=== PATIENT | female | born 1985 | race Caucasian/White ===

== ENCOUNTER 2017-02-11 13:16 | Emergency (ER) | payer OTHER ==
[~2017-02-11] VITALS: Ht 162.6 cm; Wt 68.0 kg
[~2017-02-11 13:16] MED LIST: HYDR-3533 PO; ONDA4 PO; TAMS0.4C67 PO
[2017-02-11 13:17] VITALS: BP 110/67; PULSE 108; RESP 16; TEMP 98.4; O2SAT 98
[2017-02-11] MEDS ORDERED: CITA10TA4 PO (13:32)
--- NOTE | 2017-02-11 14:17 | PD ---
HPI Chief Complaint: Injury Time Seen by Provider: 14:00 Travel History International Travel<30 days: No Contact w/Intl Traveler<30days: No Traveled to known affect area: No History of Present Illness HPI 31-year-old female presents to the emergency room for evaluation of right knee pain after slip and fall last night. Patient slipped on her sandals and fell with all of her weight on her right knee. She had immediate pain. Patient has not been able to bear weight since. States pain is excruciating when she moves it. Localized to the patella with radiation into the calf and thigh. She denies paresthesias. No chronic medical conditions. Take citalopram daily. She has not eaten anything today. Last drink tea at noon. Denies any other injuries. She does not have an orthopedic surgeon. FORMERLY [facility], [facility]–1983 Past Medical History Medical History: Denies Significant Hx Hx Anticoagulant Therapy: No Diabetes: No Diminished Hearing: No Influenza Vaccination: Yes ?: Not LMP: "NOW" Past Surgical History Section: Yes Social History Alcohol Use: Yes (3-4 BEER/WINE, 3/4 DAYS/WEEK) Tobacco Use: No (QUIT 09/2016) Substance Use: No (DENIES) Allergies-Medications (Allergen,Severity, Reaction): Coded Allergies: No Known Allergies (Verified , 02/11/17) Reported Meds & Prescriptions Reported Meds & Active Scripts Active Reported Citalopram (Citalopram Hydrobromide) 10 Mg Tab 10 Mg PO DAILY Review of Systems Except as stated in HPI: all other systems reviewed are Neg Physical Exam Narrative GENERAL: Well-nourished, well-developed female in no acute distress. Afebrile. SKIN: Focused skin assessment warm/dry. Extreme ecchymosis of the right anterior knee. HEAD: Normocephalic. EYES: No scleral icterus. No injection or drainage. NECK: Supple, trachea midline. No JVD or lymphadenopathy. CARDIOVASCULAR: Regular rate and rhythm without murmurs, gallops, or rubs. RESPIRATORY: Breath sounds equal bilaterally. No accessory muscle use. EXTREMITY: Right knee is extremity tenderness to palpation over the patella. Limited range of motion of the knee secondary to pain. Full range of motion of the ankle and foot. Extreme edema of the right knee. One plus dorsalis pedis pulse, confirmed with Doppler. Less than 2 second capillary refill distally. Data Data Last Documented VS Vital Signs Date Time Temp Pulse Resp B/P Pulse Ox O2 Delivery O2 Flow Rate FiO2 02/11/17 13:17 98.4 108 16 110/67 98 Orders Knee, Complete (4vws) (02/11/17 13:27) Splint Or Brace Apply/Monitor (02/11/17 14:57) Crutches (02/11/17 14:57) Oxycodone-Acetamin 5-325 Mg (Percocet (02/11/17 15:00) MDM Medical Decision Making Medical Screen Exam Complete: Yes Emergency Medical Condition: Yes Medical Record Reviewed: Yes Differential Diagnosis Fracture, sprain, strain, effusion Narrative Course 31-year-old female presents to the emergency room for evaluation of a knee pain after trip and fall last night. Patient fell directly on her right knee. Denies any other injuries. Physical exam reveals extreme edema and ecchymosis of the right anterior knee. Limited range of motion secondary to pain. One plus dorsalis pedis pulse in the right lower extremity, confirmed with Doppler. Less than second capillary refill distally. X-ray shows 2.4 center separation of the main superior-inferior fracture fragments of the patella. I spoke to Dr. Haines who recommends placing patient in knee immobilizer with crutches and having her follow-up in his office tomorrow morning. Patient was given Percocet in the emergency room. She'll be discharged with prescription for Lortab. Told to return for worsening symptoms. She understands and agrees to plan. Diagnosis Primary Impression: Closed fracture of right patella Qualified Code: S82.041A - Closed displaced comminuted fracture of right patella, initial encounter Referrals: Yoseph Haines MD Patient Instructions: General Instructions, Patellar Fracture (ED) Additional Instructions: Rest and drink plenty of fluids. Use crutches and splint until follow-up. Take Lortab with food as directed, as needed for pain. Do not drink alcohol or drive while taking this medication. Elevate and apply ice to the affected area for 20 minutes at a time, as needed for pain and swelling. Follow-up with Dr. Haines tomorrow morning at 7:30 at his [address] office. Return to the emergency room for worsening symptoms. Med/Other Pt SpecificInfo: Prescription(s) given Scripts Hydrocodone-Acetaminophen (Lortab)5-325 Mg Tab1 Tab PO Q6H PRN (PAIN) #15 TAB Ref 0 Prov:Sarah Culver MD 02/11/17 Disposition: 01 DISCHARGE HOME Condition: Stable Bettye Harrison Feb 11, 2017 14:17
--- NOTE | 2017-02-11 14:38 | RADRPT ---
EXAM DATE/TIME: 02/11/2017 13:43 [facility] COMPARISON: No previous studies available for comparison. INDICATIONS : Fell on right knee MEDICAL HISTORY : None. SURGICAL HISTORY : None. ENCOUNTER: Initial ACUITY: 1 day PAIN SCORE: 10/10 LOCATION: Right Knee TECH NOTE: denies , LIZBETH Robledo MR#[id number] :85 Exam date/desc:February 11, 2017 KNEE RIGHT COMPLETE (4VWS) FINDINGS: There is a acute fracture at the midportion of the patella with at least 2.4 cm of separation of the main superior and inferior fracture fragments. There is a small fracture fragment seen at the inferio r tip of the patella. There is a linear defect at the superior lateral aspect of patella which could relate to further fracturing or a pre-existing bipartite patella. There is soft tissue swelling anter iorly and laterally. The femur, tibia and proximal fibula appear intact. There is a joint effusion. CONCLUSION: Mid patellar fracture with distraction. Nic Crespo MD on February 11, 2017 at 14:33 Board Certified Radiologist. This report was verified electronically.
[2017-02-11] MEDS ORDERED: HYDR-3533 PO ×2 (14:58→14:59)
[2017-02-11] MEDS ORDERED: oxyCODONE/ACETAMINOPHEN 5 MG/325 MG TAB PO ONE (15:00)
[2017-02-14] MEDS ORDERED: HYDR-3366 PO (13:28)
== END 2017-02-11 15:39 | disposition home or self-care (01) ==
LOC: PHEFT 13:16
DX: S82.041A Displaced comminuted fracture of right patella, initial encounter for closed fracture (principal); W01.0XXA Fall on same level from slipping, tripping and stumbling without subsequent striking against object, initial encounter
CPT/HCPCS: 73564; 99283; E0113; L1830

== ENCOUNTER → 2017-02-14 | Day surgery (SDC) | payer OTHER ==
[~2017-02-14] VITALS: Ht 167.6 cm; Wt 68.0 kg
[~2017-02-14] MED LIST changes: +*morphine SULFATE 8 MG/ML PERIprocedure ONLY ONE; +ACETAMINOPHEN 1000 MG/100 ML VIAL IV ONE; +ACETAMINOPHEN/HYDROcodone 325 MG/7.5 MG TAB PO PRN; +BUPIVACAINE/EPINEPHRINE 0.25% 50 ML VIAL INFIL ONE; +CHLORHEXIDINE GLUCONATE 2 % 1 PACK (2 CLOTHS) TOPICAL PRN; +CHLORHEXIDINE GLUCONATE 4% SOLN 120 ML BTL TOPICAL SCH; +CITA10TA4 PO; +DIMETHICONE/OXYBENZONE/PADMIATE LIP BALM 4.25 GM TOPICAL ONE; +DIMETHICONE/OXYBENZONE/PADMIATE LIP BALM 4.25 GM TOPICAL PRN; +DO NOT ADM ANY ANTICOAGULANT DRUGS PRN; +GENTAMICIN SULFATE 80 MG/2 ML VIAL ONE; +HYDR-3366 PO; +INSULIN HUMAN REGULAR 1,000 UNITS/10 ML VIAL SQ PRN; +LACTATED RINGER'S 1000 ML INJ 1,000 ML IV ONE; +LACTATED RINGER'S 1000 ML IV PRN; +METOPROLOL TARTRATE 25 MG TAB PO PRN; +MIDAZOLAM HCL 2 MG/2 ML VIAL ONE; +MORPHINE SULFATE 4 MG/ML INJ IV PUSH PRN; +MORPHINE SULFATE 8 MG/ML INJ IV PUSH PRN; -ONDA4 PO; +ONDANSETRON HCL 4 MG/2 ML VIAL IV PRN; +ONDANSETRON HCL 4 MG/2 ML VIAL IV PUSH ONE; +POVIDONE IODINE 5% (ANTISEPSIS KIT) 4 APPLICATIONS EACH NARE PRN; +POVIDONE IODINE 7.5% SCRUB 118 ML BOTTLE TOPICAL SCH; +PROPOFOL 200 MG/20 ML AMP IV ONE; +SODIUM CHLORID 0.9% 500 ML IV PRN; +SODIUM CHLORIDE 0.9% FLUSH 10 ML FLUSH IV FLUSH PRN; +SODIUM CHLORIDE 0.9% FLUSH 10 ML FLUSH IV FLUSH SCH; -TAMS0.4C67 PO; +ceFAZolin 2 GM PREMIX 50 ML IV SCH; +ceFAZolin 2 GM PREMIX 50 ML ONE; +fentaNYL CITRATE 250 MCG/5 ML AMP ONE
[2017-02-14 09:20] VITALS: BP 112/79; PULSE 76; RESP 18; TEMP 98.6; O2SAT 100
--- NOTE | 2017-02-14 13:27 | PD.OP ---
cc: Yoseph Haines MD Operative Report Date of Surgery: Feb 14, 2017 Preoperative Diagnosis: Right knee patella fracture, comminuted. Postoperative Diagnosis: Same Procedure: Right knee patellar fracture open reduction and internal fixation. Anesthesia: Gen. Surgeon: Yoseph Haines Train Brakeman(s): LOR Antonio The surgical procedure was assisted by my Advanced Registered Nurse Practitioner. My TRIM OPERATOR presence was necessary throughout this case for the manipulation and positioning of the surgical extremity. My TRIM OPERATOR was assisting me throughout the duration of this procedure. The skill set of an Advance Registered Nurse Practitioner was medically necessary to complete this procedure. During the surgical case, the instructor adjunct surgical technician was working at the back table and the Advance Registered Nurse Practitioner was directly assisting me. Operation and Findings: Tourniquet time: 35 minutes at 250 mmHg of pressure Estimated blood loss: 75 cc The patient received intravenous Ancef. After the appropriate anesthesia was administered, the patient's leg was prepped and draped in the usual sterile fashion. We exsanguinated the leg and raised the tourniquet. We made a standard incision on the anterior aspect of the knee. We identified a displaced transverse patella fracture. Additionally there were 2 segments of comminution one medial and one lateral. We evacuated the hematoma. We curetted the edges to identify both the proximal and distal fragments. The visualized portion of the trochlea was unremarkable. We anatomically reduced the fracture fragments and provisionally held the fracture with reduction clamps. We verified anatomic alignment both on palpation of the articular surface and also on fluoroscopy. We then placed 2 wires from distal to proximal. We used these wires to place 2 individual 4.0 Synthes cannulated stainless steel partially-threaded screws. Both screws had very good purchase. We then placed 18-gauge wire through the base of the first screw which was then crossed and brought down to the bottom of the second screw. We threaded the wire through the second screw brining the wire to the proximal aspect of the knee. We then create a crisscross pattern. We twisted and tightened both the medial and lateral sides of the wire in usual fashion with excellent compression. The knee had full range of motion with no displacement of the fracture noted. We then suture repaired the areas of comminution both medially and laterally with 0 Vicryl. We closed the medial and lateral retinacular tears with 0 Vicryl as well. We took final fluoroscopic images. The tourniquet was released. Hemostasis was achieved and the knee was thoroughly irrigated. Skin was closed with 2-0 Vicryl followed by praveen. The postoperative plan is for delayed range of motion and nonweightbearing to the extremity with a canvas knee splint. Yoseph Haines MD Feb 14, 2017 13:27
[2017-02-14] MEDS: ACETAMINOPHEN/HYDROcodone 325 MG/7.5 MG TAB PO PRN ×2 (15:32→16:00)
[2017-02-14 16:00] VITALS: BP 112/68; PULSE 78; RESP 16; TEMP 98.4; O2SAT 100
--- NOTE | 2017-02-14 16:43 | RADRPT ---
EXAM DATE/TIME: 02/14/2017 13:12 [facility] COMPARISON: No previous studies available for comparison. INDICATIONS : RIGHT PATELLAR FIXATION MEDICAL HISTORY : None. SURGICAL HISTORY : None. ENCOUNTER: Initial ACUITY: 1 day PAIN SCORE: Non-responsive. LOCATION: Right KNEE FINDINGS: 4 digital films are submitted. These revealed patellar fixation with partially threaded cortical scre ws and cerclage wires. There appears to be satisfactory reduction fragments. The remainder the visual ized knee is grossly unremarkable. CONCLUSION: Satisfactory operative appearance Nic Goodwin MD on February 14, 2017 at 15:05 Board Certified Radiologist. This report was verified electronically.
== END | disposition home or self-care (01) ==
LOC: HSDC 08:28
PROVIDERS: ATTEND Orthopaedic Surgery
DX: S82.041A Displaced comminuted fracture of right patella, initial encounter for closed fracture (principal); W01.0XXA Fall on same level from slipping, tripping and stumbling without subsequent striking against object, initial encounter; Y93.9 Activity, unspecified; Y92.018 Other place in single-family (private) house as the place of occurrence of the external cause
CPT/HCPCS: 01392; 27524; 73560; 76000; C1713; J0131; J0690; J1580; J2250; J2270; J2405; J3010; J7120; L1830

== ENCOUNTER → 2017-05-18 | Day surgery (SDC) | payer OTHER ==
[~2017-05-18] MED LIST changes: -*morphine SULFATE 8 MG/ML PERIprocedure ONLY ONE; -ACETAMINOPHEN 1000 MG/100 ML VIAL IV ONE; +ACETAMINOPHEN/HYDROcodone 325 MG/5 MG TAB ONE; -ACETAMINOPHEN/HYDROcodone 325 MG/7.5 MG TAB PO PRN; -BUPIVACAINE/EPINEPHRINE 0.25% 50 ML VIAL INFIL ONE; +BUPIVACAINE/EPINEPHRINE 0.5% PF 10 ML VIAL ONE; -CHLORHEXIDINE GLUCONATE 2 % 1 PACK (2 CLOTHS) TOPICAL PRN; -CHLORHEXIDINE GLUCONATE 4% SOLN 120 ML BTL TOPICAL SCH; -DIMETHICONE/OXYBENZONE/PADMIATE LIP BALM 4.25 GM TOPICAL ONE; -DIMETHICONE/OXYBENZONE/PADMIATE LIP BALM 4.25 GM TOPICAL PRN; -DO NOT ADM ANY ANTICOAGULANT DRUGS PRN; -GENTAMICIN SULFATE 80 MG/2 ML VIAL ONE; -INSULIN HUMAN REGULAR 1,000 UNITS/10 ML VIAL SQ PRN; +KETOROLAC TROMETHAMINE 30 MG/ML (IVP) VIAL IV PUSH ONE; -LACTATED RINGER'S 1000 ML INJ 1,000 ML IV ONE; +LACTATED RINGER'S 1000 ML INJ 1,000 ML ONE; -LACTATED RINGER'S 1000 ML IV PRN; -METOPROLOL TARTRATE 25 MG TAB PO PRN; -MORPHINE SULFATE 4 MG/ML INJ IV PUSH PRN; +MORPHINE SULFATE 4 MG/ML INJ ONE; -MORPHINE SULFATE 8 MG/ML INJ IV PUSH PRN; -ONDANSETRON HCL 4 MG/2 ML VIAL IV PRN; -POVIDONE IODINE 5% (ANTISEPSIS KIT) 4 APPLICATIONS EACH NARE PRN; -POVIDONE IODINE 7.5% SCRUB 118 ML BOTTLE TOPICAL SCH; -SODIUM CHLORID 0.9% 500 ML IV PRN; -SODIUM CHLORIDE 0.9% FLUSH 10 ML FLUSH IV FLUSH PRN; -SODIUM CHLORIDE 0.9% FLUSH 10 ML FLUSH IV FLUSH SCH; +TRIAMCINOLONE ACETONIDE 40 MG/ML VIAL ONE; -ceFAZolin 2 GM PREMIX 50 ML IV SCH; -ceFAZolin 2 GM PREMIX 50 ML ONE; +ceFAZolin INJ 1,000 MG VIAL ONE; -fentaNYL CITRATE 250 MCG/5 ML AMP ONE
--- NOTE | 2017-05-18 22:07 | MP ---
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 SURGEON Sultana Yung MD PARI MUTUAL TICKET CHECKER LOR Pena The surgical procedure was assisted by my Advanced Registered Nurse Practitioner. My SCRAP BURNER presence was necessary throughout this case for the manipulation and positioning of the surgical extremity. My SCRAP BURNER was assisting me throughout the duration of this procedure. The skill set of an Advance Registered Nurse Practitioner was medically necessary to complete this procedure. During the surgical case, the surgical instruments inspector was working at the back table and the Advance Registered Nurse Practitioner was directly assisting me. PROCEDURE Right knee arthroscopic lysis of adhesions with manipulation under anesthesia and chondroplasty of the patella. ESTIMATED BLOOD LOSS Minimal ANESTHESIA General anesthesia TOURNIQUET TIME 0-minute PROCEDURE IN DETAIL The patient brought back to operative theater. General anesthesia was administered. She received intravenous Ancef. The right lower extremity was prepped and draped in usual sterile fashion. The patient's range of motion was 0 to 70 degrees of flexion. The previous incision is very well-healed. We made standard inferolateral portal followed by inferomedial portal under spinal needle visualization. Note that we ended up making a superior medial and superior lateral portal later on during the case. Diagnostic arthroscopy revealed that the medial compartment and lateral compartment had no chondromalacia. There were no meniscal tears. The anterior cruciate ligament was intact. Evaluation of patellofemoral joints showed the trochlea was unremarkable with no chondromalacia. The patella fracture previously was very well-healed. There was only a small area of chondromalacia along the lateral facet with a small area of unstable cartilage. There was no step off of the cartilage. Overall, we felt that there was excellent healing. We used an oscillating shaver to perform a chondroplasty of the undersurface of the lateral portion of the patella removing only a very small portion of the cartilage so as to reduce any unstable segments in that area. The previous fracture was able to be visualized which was healed. We found extensive scarring in the suprapatellar pouch and also the medial and lateral gutters. We then used a combination of oscillating shaver and then mostly ArthroCare wand to release the adhesions. We did so releasing all the adhesions suprapatellar pouch including adhesions up onto the distal femur and then we went into the medial and lateral gutters and released the adhesions in these areas. Overall, we found that this was extensive. We did shave the adhesions to make sure that they were resected and had less chance of coming back. We made sure there was no active bleeding inside the knee to reduce chance of recurrent scar formation. We made sure there were no loose bodies in the knee. We then moved out the rest of the fluid from inside of the joint. We took the leg out of the leg ingram which was done in a sterile technique and then we manipulated the knee. We were easily able to achieve up to 130 degrees of flexion of the knee with only very minimal and minor tearing sensation. We gave interarticular injection of 0.25% Marcaine with 40 mg of Kenalog and then closed arthroscopic portals with 2-0 Vicryl followed by 3-0 nylon and the leg was dressed. Postoperative plan is early active and passive range of motion. MD KYLE Banks/ /2:11 PM /9:55 PM
== END | disposition home or self-care (01) ==
LOC: ESDC 11:25
PROVIDERS: ATTEND Orthopaedic Surgery
DX: M24.661 Ankylosis, right knee (principal); Z87.81 Personal history of (healed) traumatic fracture
CPT/HCPCS: 01400; 29884; J0690; J1885; J2250; J2270; J2405; J3010; J3301; J7120